=== PATIENT | male | born 1965 | race Caucasian/White ===

== ENCOUNTER 2018-12-23 19:28 | Inpatient (IN) ==
[2018-12-23 21:13] LABS: BASO# 0.01 X1000 (0.0-0.2); BASO% 0.1 % (0.0-0.8); HEMATOCRIT 42.2 % (42.0-52.0); HEMOGLOBIN 14.8 g/dL (14.0-18.0); IMM GRAN# 0.03 X1000 (0.0-0.04); IMM GRAN% 0.4 % (0.0-0.5); LYMPH# 0.68 X1000 (1.2-3.4); LYMPH% 7.9 % (20.5-51.1); MCH 32.4 PG (27-31); MCHC 35.1 g/dL (33-37); MCV 92.3 FL (81-99); MONO# 0.51 X1000 (0.11-0.59); MPV 9.8 FL (7.4-10.4); NEUT# 7.34 X1000 (1.4-6.5); NEUT% 85.6 % (42.2-75.2); PLT 289 X1000 (130-400); RBC 4.57 XMIL (4.7-6.1); RDW 12.8 % (11.5-14.5); WBC 8.57 X1000 (4.8-10.8)
[2018-12-23 21:25] LABS: AGAP 16; ALB/GLOB RATIO 1.8; ALBUMIN 4.9 g/dL (3.5-5.0); ALKALINE PHOSPHATASE 82 U/L (32-122); BUN 12 mg/dL (8-22); CALCIUM 9.4 mg/dL (8.8-10.2); CHLORIDE 101 mmol/L (98-107); COSMO 271; CREATININE 0.8 mg/dL (0.7-1.2); ESTIMATED GFR > 60; GLUCOSE 127 mg/dL (70-104); GOT 22 U/L (10-34); GPT 24 U/L (10-44); POTASSIUM 3.6 mmol/L (3.5-5.1); SODIUM 135 mmol/L (136-145); TCO2 18 mmol/L (25-35); TOTAL BILIRUBIN 0.55 mg/dL (0.20-1.00); TOTAL PROTEIN 7.7 g/dL (6.3-8.3)
[2018-12-24 07:03] LABS: BASO# 0.02 X1000 (0.0-0.2); BASO% 0.2 % (0.0-0.8); HEMATOCRIT 39.7 % (42.0-52.0); HEMOGLOBIN 13.4 g/dL (14.0-18.0); LYMPH# 1.34 X1000 (1.2-3.4); LYMPH% 15.9 % (20.5-51.1); MCH 31.5 PG (27-31); MCHC 33.8 g/dL (33-37); MCV 93.2 FL (81-99); MONO# 1.07 X1000 (0.11-0.59); MONO% 12.7 % (1.7-9.3); MPV 9.8 FL (7.4-10.4); NEUT# 5.98 X1000 (1.4-6.5); NEUT% 71.2 % (42.2-75.2); PLT 269 X1000 (130-400); RBC 4.26 XMIL (4.7-6.1); RDW 12.9 % (11.5-14.5); WBC 8.41 X1000 (4.8-10.8)
[2018-12-24 07:26] LABS: AGAP 13; BUN 11 mg/dL (8-22); CALCIUM 8.5 mg/dL (8.8-10.2); CHLORIDE 102 mmol/L (98-107); COSMO 272; CREATININE 0.9 mg/dL (0.7-1.2); ESTIMATED GFR > 60; GLUCOSE 116 mg/dL (70-104); POTASSIUM 3.5 mmol/L (3.5-5.1); SODIUM 136 mmol/L (136-145); TCO2 21 mmol/L (25-35)
[2018-12-24 10:59] LABS: URINE SOURCE CLEAN CATCH
[2018-12-24 11:01] LABS: BILIRUBIN URINE NEGATIVE (NEGATIVE); BLOOD URINE TRACE (NEGATIVE); COLOR YELLOW; GLUCOSE URINE NEGATIVE (NEGATIVE); KETONE URINE TRACE mg/dL (NEGATIVE); LEUKOCYTES URINE NEGATIVE (NEGATIVE); NITRITE URINE NEGATIVE (NEGATIVE); PH URINE 6.5; PROTEIN URINE 30 mg/dL (NEGATIVE); TURBIDITY URINE CLEAR (CLEAR); UR EPITHELIAL CELLS <10 /HPF (<10); URINE BACTERIA NEGATIVE /HPF; URINE RBC <10 /HPF (<10); URINE WBC <10 /HPF (<10); UROBILINOGEN URINE NORMAL (NORMAL)
[2018-12-24 12:09] LABS: SP GRAVITY URINE > 1.030
[2018-12-25 06:58] LABS: BASO# 0.03 X1000 (0.0-0.2); BASO% 0.7 % (0.0-0.8); EOS# 0.03 X1000 (0.0-0.7); EOS% 0.7 % (0.0-10.0); HEMATOCRIT 35.1 % (42.0-52.0); HEMOGLOBIN 11.6 g/dL (14.0-18.0); LYMPH# 1.49 X1000 (1.2-3.4); LYMPH% 35.2 % (20.5-51.1); MCH 31.4 PG (27-31); MCV 95.1 FL (81-99); MONO# 0.58 X1000 (0.11-0.59); MONO% 13.7 % (1.7-9.3); MPV 9.6 FL (7.4-10.4); NEUT% 49.7 % (42.2-75.2); PLT 222 X1000 (130-400); RBC 3.69 XMIL (4.7-6.1); RDW 12.9 % (11.5-14.5); WBC 4.23 X1000 (4.8-10.8)
[2018-12-25 07:08] LABS: AGAP 11; ALB/GLOB RATIO 1.9; ALBUMIN 3.8 g/dL (3.5-5.0); ALKALINE PHOSPHATASE 57 U/L (32-122); BUN 7 mg/dL (8-22); C REACTIVE PROT QUANT 0.37 mg/L (0.00-5.00); CALCIUM 8.3 mg/dL (8.8-10.2); CHLORIDE 105 mmol/L (98-107); COSMO 274; CREATININE 0.8 mg/dL (0.7-1.2); ESTIMATED GFR > 60; GLUCOSE 102 mg/dL (70-104); GOT 19 U/L (10-34); GPT 19 U/L (10-44); POTASSIUM 3.7 mmol/L (3.5-5.1); SODIUM 138 mmol/L (136-145); TCO2 22 mmol/L (25-35); TOTAL BILIRUBIN 0.47 mg/dL (0.20-1.00); TOTAL PROTEIN 5.8 g/dL (6.3-8.3)
[2018-12-26 06:59] LABS: AGAP 11; BUN 6 mg/dL (8-22); CHLORIDE 106 mmol/L (98-107); COSMO 273; CREATININE 0.8 mg/dL (0.7-1.2); ESTIMATED GFR > 60; GLUCOSE 102 mg/dL (70-104); POTASSIUM 3.8 mmol/L (3.5-5.1); SODIUM 138 mmol/L (136-145); TCO2 21 mmol/L (25-35)
[2018-12-27 07:21] LABS: AGAP 14; BUN 9 mg/dL (8-22); CHLORIDE 105 mmol/L (98-107); COSMO 274; CREATININE 0.9 mg/dL (0.7-1.2); ESTIMATED GFR > 60; GLUCOSE 98 mg/dL (70-104); POTASSIUM 3.9 mmol/L (3.5-5.1); SODIUM 138 mmol/L (136-145); TCO2 19 mmol/L (25-35)
[2018-12-28 07:04] LABS: HEMATOCRIT 37.6 % (42.0-52.0); MCH 32.8 PG (27-31); MCHC 34.6 g/dL (33-37); MCV 94.9 FL (81-99); MPV 9.8 FL (7.4-10.4); RBC 3.96 XMIL (4.7-6.1); RDW 13.2 % (11.5-14.5); WBC 5.5 X1000 (4.8-10.8)
[2018-12-28 07:20] LABS: AGAP 13; BUN 8 mg/dL (8-22); CALCIUM 8.8 mg/dL (8.8-10.2); CHLORIDE 108 mmol/L (98-107); COSMO 282; CREATININE 0.9 mg/dL (0.7-1.2); ESTIMATED GFR > 60; GLUCOSE 104 mg/dL (70-104); POTASSIUM 3.9 mmol/L (3.5-5.1); SODIUM 142 mmol/L (136-145); TCO2 21 mmol/L (25-35)
[2018-12-29 12:22] VITALS: BP 137/96
== END 2018-12-29 16:26 | disposition home or self-care (01) ==
LOC: SUPCPDRO → ED 19:28 → SUATTDRO 12-24 01:52 → 4N 12-24 01:52
PROVIDERS: ATTEND Internal Medicine